=== PATIENT | male | born 1970 | race Caucasian/White ===

== ENCOUNTER 2019-04-26 04:24 | Emergency (ER) | payer BC ==
[2019-04-26] MEDS ORDERED: ONDANSETRON HCL IV 4 MG/2 ML VIAL IVP ONE (04:35)
[2019-04-26] MEDS ORDERED: 0.9 % SODIUM CHLORIDE 1,000 ML BAG IV ONE (04:35)
--- NOTE | 2019-04-26 04:43 | Emergency Department Record ---
History of Present Illness - General Chief Complaint: Abdominal Pain Stated Complaint: stomach ache Time Seen by Provider: 04/26/19 04:34 Source: Patient Mode of Arrival: Ambulatory - History of Present Illness Initial Comments: 48 yo male presents with crampy abdominal pain and vomited once. The onset was just prior to arrival. He states he has had some pain for the about 1.5 weeks. He has also had a rash on the left abdomen during that time as well. No fever. No diarrhea. He reports normal bowel movements. No blood in vomit. No past abdominal surgery history. He is on Amoxicillin for a sinus infection. No radiation to the back. MD Complaint: Abdominal pain Onset/Timin -: Days(s) Location: RLQ Radiation: None Migration to: No migration Severity: Mild Severity scale (1-10): 3 Quality: Cramping Consistency: Constant Improves With: Nothing Worsens With: Eating Context: Other Associated Symptoms: Anorexia - Related Data Previous Rx's Medication Instructions Recorded Famciclovir 500 mg PO TID #21 tablet 04/26/19 Ondansetron [Zofran Odt] 4 mg PO Q8H #15 tab.rapdis 04/26/19 Travel Screening - Travel/Exposure Within Last 30 Days Have you traveled within the last 30 days?: No - Travel/Exposure Within Last Year Have you traveled outside the [place] in the last year?: No - Additonal Travel Details Have you been exposed to anyone with a communicable illness?: No - Travel Symptoms Symptom Screening: None Review of Systems Constitutional: Denies: Chills, Fever, Malaise, Weakness Eyes: Denies: Eye discharge, Eye pain, Vision change ENT: Reports: Congestion. Denies: Throat pain Respiratory: Denies: Cough Cardiovascular: Denies: Chest pain, Syncope Endocrine: Denies: Fatigue, Polydipsia, Polyuria Gastrointestinal: Reports: As per HPI, Abdominal pain, Nausea, Vomiting. Denies : Diarrhea Genitourinary: Denies: Dysuria, Frequency, Hematuria Musculoskeletal: Denies: Arthralgia, Back pain, Joint swelling, Myalgia Skin: Reports: Rash. Denies: Bruising, Change in color Neurological: Denies: Confusion, Headache Psychiatric: Denies: Anxiety Hematological/Lymphatic: Denies: Easy bleeding, Easy bruising Past Medical History - SOCIAL HISTORY Smoking Status: Never smoker Alcohol Use: None Drug Use: None - RESPIRATORY Hx Respiratory Disorders: No - CARDIOVASCULAR Hx Cardio Disorders: Yes Hx Hypertension: Yes - NEURO Hx Neuro Disorders: No - GI Hx GI Disorders: No - Hx Genitourinary Disorders: No - ENDOCRINE Hx Endocrine Disorders: No Hx Diabetes: No Hx Thyroid Disease: No - MUSCULOSKELETAL Hx Musculoskeletal Disorders: No - PSYCH Hx Psych Problems: No - HEMATOLOGY/ONCOLOGY Hx Hematology/Oncology Disorders: No Family Medical History Any Significant Family History?: No Physical Exam - General General Appearance: Alert, Oriented x3, Cooperative, No acute distress Limitations: No limitations - Head Head exam: Atraumatic, Normal inspection - Eye Eye exam: Normal appearance, PERRL. negative: Conjunctival injection, Scleral icterus - ENT ENT exam: Normal exam, Mucous membranes moist Ear exam: Normal external inspection Nasal Exam: Normal inspection Mouth exam: Normal external inspection - Neck Neck exam: Normal inspection. negative: Lymphadenopathy - Respiratory Respiratory exam: Normal lung sounds bilaterally. negative: Respiratory distress - Cardiovascular Cardiovascular Exam: Regular rate, Normal rhythm, Normal heart sounds - GI/Abdominal GI/Abdominal exam: Soft, Tenderness (very mild tenderness in the epigastric area, soft abdomen, no rebound or guarding). negative: Distended, Guarding, Rebound, Rigid - Rectal Rectal exam: negative: Deferred - exam: negative: Deferred - Extremities Extremities exam: Normal inspection Image of Full Body: 1 - patchy vesicular rash just crossing midline, but not on back - Back Back exam: Reports: Normal inspection - Neurological Neurological exam: Alert, Oriented X3 - Psychiatric Psychiatric exam: Normal affect, Normal mood - Skin Skin exam: Rash Course Vital Signs 04/26/19 04:29 Temperature 97.5 F L Pulse Rate [ 71 Pulse Ox Probe] Respiratory 20 Rate Blood Pressure 149/100 [Left Arm] Pulse Ox 98 - Reevaluation(s) Reevaluation #1: 04/26/19 05:03 The CBC was reviewed No acute abnormality 04/26/19 05:08 The CMP was reviewed The CR is 1.4 otherwise no acute abnormality The Lipase is normal 04/26/19 05:14 The patient was rechecked. He states he has not nausea or pain His abdomen was rechecked. He has no pain on palpation. He was given PO fluid trial. 04/26/19 05:26 We discussed the results of the tests and questions were answered at the time of discharge. The patient is doing well and is comfortable with DC. We discussed at length reasons to immediately return to the ED as well as close follow up. The patient will call the PCP for close follow up of this ED visit to review this visit and the tests performed 04/26/19 05:52 At DC the patient is doing well without nausea or pain. Medical Decision Making - Lab Data Result diagrams: 04/26/19 04:36 04/26/19 04:39 Disposition Disposition: Discharge Clinical Impression: Shingles Qualifiers: Herpes zoster complications: without complications Qualified Code(s): B02.9 - Zoster without complications Vomiting Qualifiers: Vomiting type: unspecified Vomiting Intractability: unspecified Nausea presence: with nausea Qualified Code(s): R11.2 - Nausea with vomiting, unspecified Abdominal pain Qualifiers: Abdominal location: epigastric Qualified Code(s): R10.13 - Epigastric pain Disposition: Home, Self-Care Condition: (1) Good Instructions: Shingles (ED), Abdominal Pain (ED) Additional Instructions: Review this ER visit and the tests performed with your family doctor (Dr Fraser) Call your doctor for the next available follow up appointment to recheck your l ab tests of your kidneys in the next week Return to the ER for a recheck if worse, vomiting, pain, fever or any new concerns or questions Take the prescriptions provided as directed Prescriptions: Famciclovir 500 mg PO TID #21 tablet Ondansetron [Zofran Odt] 4 mg PO Q8H #15 tab.rapdis Referrals: LUNA FRASER [MEDICAL DOCTOR] - Forms: Patient Portal Access Time of Disposition: 05:51 Quality - Quality Measures Quality Measures: N/A - Blood Pressure Screening Does Patient Have Any of the Following: No Blood Pressure Classification: Hypertensive Reading Systolic Measurement: 149 Diastolic Measurement: 100 Screening for High Blood Pressure: < Pre-Hypertensive BP, F/U Documented > [G [id number]] Pre-Hypertensive Follow-up Interventions: Referral to alternative/primary care provider.
[2019-04-26 04:47] LABS: ABSOLUTE NEUTROPHIL COUNT 10.16; BASO % 0.2 % (0-6); EOS % 0.3 % (0-6); HEMATOCRIT 44.3 % (42.0-52.0); HEMOGLOBIN 14.6 gm/dl (14.0-18.0); LYMPH % 5.2 % (16-45); MEAN CELL VOLUME 90.2 fl (81-97); MEAN CORPUSCULAR HEMOGLOBIN 29.7 pg (27-33); MONO % 5.5 % (0-9); PLATELET COUNT 276 K/uL (130-400); RED BLOOD COUNT 4.91 M/uL (4.40-5.70); RED CELL DISTRIBUTION WIDTH 12.7 % (11.5-14.5); WHITE BLOOD COUNT W/O DIFF 11.4 K/uL (4.2-12.2)
[2019-04-26 05:00] LABS: BILIRUBIN,TOTAL 0.3 mg/dL (0.2-1.0); CREATININE 1.4 mg/dL (0.7-1.2)
[2019-04-26 05:01] LABS: TOTAL PROTEIN 7.4 g/dL (6.6-8.7)
[2019-04-26 05:06] LABS: ALB/GLOB RATIO 1.6 (1.1-1.8); ALBUMIN 4.5 g/dL (4.0-5.0)
[2019-04-26] MEDS ORDERED: ONDANSETRON 4 MG ODT TABLET SL ONE (05:30)
== END 2019-04-26 05:58 | disposition home or self-care (01) ==
LOC: ER 04:24
DX: B02.9 Zoster without complications (principal); R10.31 Right lower quadrant pain; R11.2 Nausea with vomiting, unspecified; I10 Essential (primary) hypertension
CPT/HCPCS: 99284 ×2; 96374; 96361; 83690; 85025; 80053; J2405; J7030